=== PATIENT | male | born 1990 | race African-American/Black ===

== ENCOUNTER 2017-05-12 18:15 | Emergency (ER) | payer MEDICAID ==
[~2017-05-12] VITALS: Ht 170.2 cm; Wt 79.5 kg
[~2017-05-12 18:15] MED LIST: ALBU17AE27 IH
[2017-05-12] MEDS ORDERED: KETOROLAC TROMETHAMINE 60 MG/2 ML VIAL IM ONE (19:00)
[2017-05-12] MEDS ORDERED: CYCLOBENZAPRINE HCL 10 MG TABLET PO ONE (19:15)
[2017-05-12 20:01] VITALS: BP 124/80
== END 2017-05-12 20:45 | disposition home or self-care (01) ==
LOC: EMS 18:16
DX: S23.3XXA Sprain of ligaments of thoracic spine, initial encounter (principal); S13.4XXA Sprain of ligaments of cervical spine, initial encounter; V43.52XA Car driver injured in collision with other type car in traffic accident, initial encounter; Y93.89 Activity, other specified; Y92.481 Parking lot as the place of occurrence of the external cause; Y99.8 Other external cause status
CPT/HCPCS: 72040; 72070; 72100; 96372; 99284; J1885